=== PATIENT | male | born 1965 | race Caucasian/White ===

== ENCOUNTER 2023-06-28 03:26 | Emergency (ER) | payer OTHER ==
--- NOTE | 2023-06-28 03:40 | ED Integumentary General ---
General Stated Complaint: POSS SPIDER BITE RIGHT CHEEK Source: patient Exam Limitations: no limitations History of Present Illness Date Seen by Provider: Jun 28, 2023 Time Seen by Provider: 03:40 Initial Comments Patient is a 58-year-old male who presents to the emergency department with a chief complaint of abscess to the right lower side of the mouth, he states symptom onset within the last 24 hours. He states it is very painful, he took some Aleve about 2 hours prior to arrival without any relief of symptoms. He states he has been "squeezing" the area and had pus come out. Denies fevers, chills. Takes no daily medications for diabetes or hypertension. [facility] with [facility] in [place], [place]. Thinks potentially he might of had a "spider bite" as he has had similar lesions on his leg and hand. He also thought it may have been an "ingrown hair" and plucked several hairs in the area. Timing/Duration: yesterday Severity: moderate Location: face Possible Cause: no cause identified Associated Symptoms: denies symptoms Allergies and Home Medications Allergies Coded Allergies: Penicillins (Verified Allergy, Unknown, 06/28/23) Patient Home Medication List Home Medication List Reviewed: Yes Review of Systems Review of Systems Constitutional: see HPI EENTM: other (swelling right side of mouth) Respiratory: no symptoms reported Cardiovascular: no symptoms reported Gastrointestinal: no symptoms reported Physical Exam Vital Signs Vital Signs - First Documented 06/28/23 03:35 Temp 36.8 Pulse 106 Resp 16 B/P (MAP) 183/95 (124) Pulse Ox 97 O2 Delivery Room Air Capillary Refill : General Appearance: WD/WN, no apparent distress, obese HEENT: PERRL/EOMI Neck: supple Cardiovascular: regular rate, rhythm Respiratory: lungs clear, normal breath sounds Neurologic/Psychiatric: alert, oriented x 3 Skin: normal color, warm/dry, other (area of induration approx 2cm diameter just inferior to the corner of the right side of the mouth. Tender to palpation. No fluctuance is appreciated. No significant erythema. induration seems to extend just superior to the right upper lip.) Skin Problem Location: face Skin Problem Character: abscess Progress/Results/Core Measures Results/Orders Vital Signs/I&O 06/28/23 03:35 Temp 36.8 Pulse 106 Resp 16 B/P (MAP) 183/95 (124) Pulse Ox 97 O2 Delivery Room Air Progress Progress Note : Time: 04:03 Progress Note Patient seen and examined by me. Evaluation today includes history and physical exam. Pertinent physical exam findings well-developed well-nourished obese male in mild distress due to pain at the corner of the right lower lip. He has an area of abscess approximately 2 cm in diameter that extends just a little bit over the right corner of the mouth. Mild erythema. No obvious drainage. Tender to palpation. No cervical lymphadenopathy on the right. Heart is regular. Patient is slightly hypertensive at 180/80. Afebrile. Differential diagnosis abscess versus cellulitis Patient had half cc of 1% lidocaine injected over the center of the indurated area. I used a 22-gauge needle to attempt to withdraw purulence and to slightly open the area. No purulence was obtained. The patient did achieve a little bit of relief of the discomfort with the lidocaine injection. I recommended alternating hot and cold to the area. We will place him on doxycycline. Strict return precautions. I advised that he have a follow-up appointment within the next 2 or 3 days. He verbalized understanding of the plan of care. All questions are sought and answered Departure Impression Primary Impression: Facial abscess Disposition: HOME, SELF-CARE Condition: Stable Departure-Patient Inst. Decision time for Depature: 04:05 Referrals: NO,LOCAL PHYSICIAN (PCP/Family) Primary Care Physician Patient Instructions: Skin Abscess Add. Discharge Instructions: Alternate warm and cool compresses to the area. Take the doxycycline antibiotic - 100mg twice a day for 10 days. Please be sure and finish the entire course. Do not squeeze on the area any more. I have given you some Tramadol (pain medication) - you can take 1 every 6 hours with an extra strength tylenol tablet as needed for pain. If you have no improvement of the swelling, pain, redness after 2 days of antibiotics (or any significant worsening) please return to the Emergency Department for re-evaluation. [facility] Scripts Tramadol HCl (Tramadol HCl) 50 Mg Tablet 50 MG PO Q6H PRN for PAIN, #8 TAB 0 Refills Prov: FLACO DEL CID MD 06/28/23 Doxycycline Hyclate (Doxycycline Hyclate) 100 Mg Tablet 100 MG PO BID, #19 TAB 0 Refills Prov: FLACO DEL CID MD 06/28/23 FLACO DEL CID MD Jun 28, 2023 03:40
[2023-06-28] MEDS ORDERED: TRM50T PO (04:09)
[2023-06-28] MEDS ORDERED: DOXY100T2 PO (04:09)
[2023-06-28 04:17] VITALS: BP 183/95
== END 2023-06-28 04:17 | disposition home or self-care (01) ==
LOC: ER 03:30
DX: K12.2 Cellulitis and abscess of mouth (principal); Z88.0 Allergy status to penicillin
CPT/HCPCS: 99283